=== PATIENT | male | born 1995 | race Two or more races ===

== ENCOUNTER 2024-07-23 11:02 | Emergency (ER) | payer MEDICAID, SELFPAY ==
--- NOTE | 2024-07-23 11:20 | XR_ITS ---
Examination: Abdomen sonogram, Limited Date and time of exam: July 23, 2024 1248 hours INDICATIONS: Epigastric pain and vomiting blood beginning 3 days ago Technique: Real-time meraz scale transabdominal sonographic images of the upper abdomen obtained. Findings: Normal gallbladder Normal common bile duct 0.3 cm Pancreatic head 3.0 cm Liver 14.5 cm fatty infiltration smooth contour no focal liver lesions Normal hepatopedal portal venous flow Patent IVC IMPRESSION: Normal gallbladder Fatty liver
--- NOTE | 2024-07-23 11:20 | EKG_ITS ---
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
--- NOTE | 2024-07-23 11:24 | EDNOTE_ITS ---
Nausea/Vomit./Diarrhea-RME/HPI General Chief complaint: Chest Pain Stated complaint: CX PAIN, VOMITING BLOOD X 2 DAYS Time Seen by Provider: 07/23/24 11:05 Arrival date/time: 07/23/24 11:02 RME / HPI RME / HPI Narrative: 28-year-old male patient with significant history of diabetes mellitus, came in for evaluation regarding vomiting. Patient told me that he has been having vomiting with blood-streaked vomitus for the last 2 days, associated with substernal chest pain. Patient told me that he cannot take anything down due to vomiting. Also complained of epigastric pain. Patient denies any black tarry stool. However her last bowel movement was 4 days ago. Patient denies any abuse of alcohol. Admits to using marijuana on a regular basis. No medication was taken prior travel. Related Data Previous Rx's ?Medication ?Instructions ?Recorded naproxen 500 mg tablet 500 mg PO BID PRN pain #30 tabs 04/07/23 pantoprazole 40 mg tablet,delayed 40 mg PO QDAY #30 tabs 01/18/24 release acetaminophen 300 mg-codeine 30 mg 2 tab PO TID PRN pain #10 tabs 03/28/24 tablet famotidine 40 mg tablet 40 mg PO QDAY #30 tabs 03/28/24 metoclopramide HCl 10 mg tablet 10 mg PO Q6H PRN nausea and 03/28/24 (Reglan) vomiting #20 tabs ondansetron 4 mg disintegrating 4 mg PO Q8H PRN nausea and 04/06/24 tablet vomiting #14 tabs pantoprazole 40 mg tablet,delayed 40 mg PO QDAY #14 tabs 05/22/24 release sucralfate 100 mg/mL oral 5 ml PO BID PRN abdominal 05/22/24 suspension discomfort #473 mL ondansetron HCl 4 mg tablet 4 mg PO Q8H PRN nausea and 07/23/24 vomiting 4 days #30 tabs pantoprazole 40 mg tablet,delayed 40 mg PO QDAY #30 tabs 07/23/24 release (Protonix) Allergies Allergy/AdvReac Type Severity Reaction Status Date / Time No Known Allergies Allergy Unknown Verified 07/23/24 11:04 Review of Systems Review of Systems Narrative Review of Systems: Review of system reviewed and within normal limits except mentioned in HPI ED Exam Narrative Physical exam: VITAL SIGNS: Reviewed. GENERAL APPEARANCE: Alert and interactive, follows commands, no acute distress, HEAD AND FACE: Non-traumatic. ENT: PERRL, pink conjunctivitis, eyelid no trauma, Mucous membrane moist. NECK: Supple, nontender, no nuchal rigidity. CHEST: No tenderness, no crepitus, no paradoxical movement, no retractions. LUNGS: Clear, well ventilated, symmetric, no rales, no wheezing, no ronchi, no stridor, good breath sounds bilaterally. HEART: Regular rate, regular rhythm, no murmur, no gallops. ABDOMEN: Soft, positive bowel sounds, nondistended, no guarding, epigastric tenderness, no rebound, no masses, RECTAL: Deferred. GENITAL: Deferred. NEUROLOGICAL: Gross motor function intact sensory function intact, Appropriate for age. MUSCULOSKELETAL: low back nontender, full range of motion. EXTREMITIES: Nontender, full range of motion. SKIN: Color pink, dry, no rash, no lacerations, no abrasions, no contusions. LYMPHATICS: Deferred. Course Quality Measures none Orders Category Date Time Status CT Screening NOW Care 07/23/24 12:22 Active EKG (ED ONLY) *Do not use* NOW Care 07/23/24 11:20 Completed Occult blood,Gastric (Nursing) NEEDED Care 07/23/24 11:[address] abdomen pelvis w con Stat Exams 07/23/24 12:22 Completed EKG (ED Only) Stat Exams 07/23/24 11:20 Draft US gall bladder Stat Exams 07/23/24 11:20 Completed XR chest 1V Stat Exams 07/23/24 11:26 Completed Acetone [Beta Hydroxybutyrate] Stat Lab 07/23/24 11:28 Completed CBC Stat Lab 07/23/24 11:28 Completed Comprehensive Metabolic Panel Stat Lab 07/23/24 11:28 Completed Drug Screen,Urine Stat Lab 07/23/24 11:24 Ordered Hemoglobin A1C [Glycohemoglobin w (eAG)] Stat Lab 07/23/24 11:28 Completed Lipase Stat Lab 07/23/24 11:28 Completed Partial Thromboplastin Time Stat Lab 07/23/24 11:28 Completed Prothrombin Time with INR Stat Lab 07/23/24 11:28 Completed Troponin I Stat Lab 07/23/24 11:28 Completed VBG [Venous Blood Gas] Stat Lab 07/23/24 11:28 Completed Morphine Inj Med 07/23/24 11:22 Discontinued 4 mg IVP X1 ONE Ondansetron Inj [Zofran Inj] Med 07/23/24 11:24 Discontinued 4 mg IV X1 ONE Pantoprazole Inj [Protonix Inj] Med 07/23/24 11:19 Discontinued 80 mg IV X1 ONE Sodium Chloride 0.9% 1000 ml [Ns] 1,000 ml Med 07/23/24 11:19 Discontinued IV 999 mls/hr Vital Signs Vital signs: Vital Signs Temperature 98.0 F 07/23/24 11:25 Pulse Rate 120 H 07/23/24 11:25 Respiratory Rate 16 07/23/24 11: Blood Pressure 139/98 H 07/23/24 11:25 Pulse Oximetry (%) 98 07/23/24 11:25 Oxygen Delivery Method Room Air 07/23/24 11:25 Nausea/Vomiting/Diarrhea MDM Narrative MDM Narrative:: 28-year-old male patient with significant history of diabetes mellitus, came in for evaluation regarding vomiting. Patient told me that he has been having vomiting with blood streak vomitus for the last 2 days, associated with substernal chest pain. Patient told me that he cannot take anything down due to vomiting. Also complained of epigastric pain. Patient denies any black tarry stool. However her last bowel movement was 4 days ago. Patient denies any abuse of alcohol. Admits to using marijuana on a regular basis. No medication was taken prior travel. Patient's workup today came back with no leukocytosis, blood sugar was noted to be 264 with no sign of diabetic ketoacidosis. Troponin is normal beat is 0.9. CT scan of the abdomen came back unremarkable chest x-ray came back unremarkable ultrasound the gallbladder also came back unremarkable. Except for fatty liver. Patient received IV fluids, Protonix, Zofran with significant improvement of symptoms no more vomiting in the ED. Patient is tolerating p.o. fluids. Patient was advised to stop abusing marijuana which could be the reason for his vomiting. Patient agrees with the plan. Patient data External records reviewed:: None Clinical information provided by:: patient Social determinants that could affect healthcare access:: substance use Patient has the following chronic illnesses:: Diabetes mellitus How is presenting disease/condition affected by chronic disease/condition?: exacerbated by Evaluation data The following diagnostics were reviewed and interpreted by me:: lab results and radiology exam(s) Lab and/or radiology exams considered but not ordered:: None Interpretation Summary: Patient's workup today came back with no leukocytosis, blood sugar was noted to be 264 with no sign of diabetic ketoacidosis. Troponin is normal beat is 0.9. CT scan of the abdomen came back unremarkable chest x-ray came back unremarkable ultrasound the gallbladder also came back unremarkable. Except for fatty liver. Medications / Prescriptions Medications / Prescriptions considered but not ordered:: None Medication administrations:: Medication Administration History Discontinued Medications Sodium Chloride (Ns) 1,000 mls @ 999 mls/hr IV .Q1H1M ONE Stop: 07/23/24 12:19 Last Infusion: 07/23/24 12:41 Dose: Infused Documented By: Admin: 07/23/24 11:40 Dose: 999 mls/hr Documented By: LILY Morphine Sulfate (Morphine Sulf Inj 10 Mg/Ml Vial) 4 mg IVP X1 ONE Stop: 07/23/24 11:23 Last Admin: 07/23/24 11:41 Dose: 4 mg Documented By: LILY Ondansetron HCl (Ondansetron Inj 2 Mg/Ml Inj 2 Ml) 4 mg IV X1 ONE; Protocol Stop: 07/23/24 11:25 Last Admin: 07/23/24 11:41 Dose: 4 mg Documented By: LILY Pantoprazole Sodium (Pantoprazole Inj 40 Mg Vial) 80 mg IV X1 ONE Stop: 07/23/24 11:20 Last Admin: 07/23/24 11:41 Dose: 80 mg Documented By: LILY IV fluids, morphine, Zofran and Protonix Consultations Consultation(s) initiated? (list below): No Diagnosis Nausea Differential Diagnosis: food poisoning, gastroenteritis and dehydration Most likely diagnosis given after review of the tests above:: Cannabinoid hyperemesis syndrome, diabetes mellitus Admission Indicated Admission indicated?: not indicated Explain why admission is indicated or not indicated:: Stable Admission Request Was there a request for admission?: No Disposition Plan Disposition Plan: Discharge Discharge Attestation Discharge Attestation: The patient was given an opportunity to ask questions and understood the discharge instructions. Discharge instructions specifically effects, indications for sooner follow up or return to the emergency department, and the expected course of current diagnosis. Patient condition: Stable Discharge Plan Plan Patient Disposition: HOME (Self Care) Disposition Comment: Stable Prescriptions/Referrals Prescriptions/Med Rec: New ondansetron HCl 4 mg tablet 4 mg PO Q8H PRN (Reason: nausea and vomiting) 4 Days Qty: 30 0RF pantoprazole [Protonix] 40 mg tablet,delayed release (DR/EC) 40 mg PO QDAY Qty: 30 0RF No Action famotidine 40 mg tablet 40 mg PO QDAY Qty: 30 0RF acetaminophen-codeine 300-30 mg tablet 2 tab PO TID MDD 6 PRN (Reason: pain) Qty: 10 0RF metoclopramide HCl [Reglan] 10 mg tablet 10 mg PO Q6H PRN (Reason: nausea and vomiting) Qty: 20 0RF ondansetron 4 mg tablet,disintegrating 4 mg PO Q8H PRN (Reason: nausea and vomiting) Qty: 14 0RF naproxen 500 mg tablet 500 mg PO BID PRN (Reason: pain) Qty: 30 0RF pantoprazole 40 mg tablet,delayed release (DR/EC) 40 mg PO QDAY Qty: 30 0RF pantoprazole 40 mg tablet,delayed release (DR/EC) 40 mg PO QDAY Qty: 14 0RF sucralfate 100 mg/mL suspension 5 ml PO BID PRN (Reason: abdominal discomfort) Qty: 473 0RF Rx Instructions: swish in mouth and swallow; use after food/drink Referrals: Neda Perez PA-C [Primary Care Provider] - In 1 week Problem List Clinical Impression: Cannabinoid hyperemesis syndrome, Diabetes mellitus Patient/Caregiver Discharge Instructions Discharge Activity: activity as tolerated Education Materials: Diabetes: Meal Planning Additional Instructions: Thank you for the opportunity for serving you today. You are stable for discharged . You are advised to: Follow-up with your PCP in 1 to 2 days Return to ED for worsening of symptoms Increase oral fluids Take medication as prescribed Please stop abusing marijuana we will worsen your vomiting. And it is the cause of your vomiting also. Print Language: Malaysian Stand Alone Forms: Amy Award Info., Patient Portal Info Letter INDERJIT/SONI Supervising Physician JULI Supervising Physician: MD Lexus
[2024-07-23 11:25] VITALS: BP 139/98; PULSE 120; RESP 16; TEMP 36.7; O2SAT 98; BMI 24.3
--- NOTE | 2024-07-23 11:26 | XR_ITS ---
Examination: PA chest single view TECHNIQUE: Upright PA chest single view Exam date and time: July 23, 1999 2547 hours Comparison June 22, 2022 INDICATIONS: Diagnosis diabetes, onset vomiting beginning 2 days ago with substernal chest pain FINDINGS: Normal heart size. Lungs are clear. No aspiration pneumonia. The osseous structures are intact IMPRESSION: Negative for aspiration pneumonia
[2024-07-23] MEDS: SODIUM CHLORIDE 0.9% 1000 ML 1,000 ML 999 ML IV (11:40)
[2024-07-23] MEDS: PANTOPRAZOLE INJ 40 MG VIAL 80 MG IV (11:41)
[2024-07-23] MEDS: MORPHINE SULF INJ 10 MG/ML VIAL 4 MG IVP (11:41)
[2024-07-23] MEDS: ONDANSETRON INJ 2 MG/ML INJ 2 ML 4 MG IV (11:41)
[2024-07-23 11:47] LABS: Base Excess, Venous 5 (-3-3); O2 Saturation, Venous 83 % (96-97); PCO2, Venous 40 mmHg (36-56); PO2, Venous 45 mmHg (15-58); pH, Venous 7.47 (7.33-7.66)
[2024-07-23 11:53] LABS: Basophils # (Auto) 0.1 Thou/mm3 (0.0-0.2); Basophils % (Auto) 1 % (0-2.5); Eosinophils % (Auto) 1 % (0-10); Hematocrit 47.5 % (41.0-53.0); Hemoglobin 17.4 g/dL (13.5-16.0); Immature Granulocytes % (Auto) 0 % (0-0); Immature Granulocytes Auto 0.01 Thou/mm3 (0.00-0.00); Lymphocytes # (Auto) 1.6 Thou/mm3 (1.0-4.8); Lymphocytes % (Auto) 19 % (10-50); Mean Corpuscular HGB Conc 36.6 g/dl (31.0-37.0); Mean Corpuscular Hemoglobin 31.5 pg (25.0-35.0); Mean Corpuscular Volume 86 fL (80-100); Monocytes # (Auto) 0.3 Thou/mm3 (0.0-0.8); Monocytes % (Auto) 4 % (0-12); Neutrophils # (Auto) 6.7 Thou/mm3 (1.8-7.7); Neutrophils % (Auto) 77 % (37-80); Nucleated Red Blood Cell % 0 /100 WBC (0); Platelet Count 382 Thou/mm3 (140-440); RDW Standard Deviation 36.7 fL (35.1-43.9); Red Blood Count 5.53 Miln/mm3 (4.50-5.90); White Blood Count 8.7 Thou/mm3 (3.8-10.6)
[2024-07-23 11:55] LABS: Beta Hydroxybutyrate 0.9 mmol/L (<0.6)
[2024-07-23 12:07] LABS: Partial Thromboplastin Time 28.8 Seconds (22.0-36.0); Prothrombin Time 11.4 Seconds (9.0-12.2)
[2024-07-23 12:11] LABS: Alanine Aminotransferase 12 U/L (10-49); Albumin/Globulin Ratio 1.7 (1.2-2.2); Alkaline Phosphatase 106 U/L (46-116); Anion Gap 11 (7-16); Aspartate Amino Transferase 11 U/L (0-34); BUN/Creatinine Ratio 21 Ratio (12-20); Bilirubin,Total 0.8 mg/dL (0.3-1.2); Blood Urea Nitrogen 17 mg/dL (9-23); Calcium 9.9 mg/dL (8.3-10.6); Calcium (Corrected) 9.9 mg/dL (8.5-10.1); Carbon Dioxide 27.4 mMol/L (20.0-31.0); Chloride 95 mMol/L (98-107); Creatinine (Component) 0.8 mg/dL (0.6-1.3); Estimated Creatinine Clearance 134.2 mL/min (>60); Globulin 2.9 gm/dL (2.3-3.5); Glucose 264 mg/dL (74-106); Lipase 33 U/L (12-53); Osmolality,Calculated 276 (275-295); Potassium 3.8 mMol/L (3.4-5.1); Sodium 133 mMol/L (136-145); Total Protein 7.9 gm/dL (5.7-8.2); Troponin I < 0.002 ng/mL (0.0-0.045); eGFR > 60 See Note
--- NOTE | 2024-07-23 12:22 | XR_ITS ---
Examination: CT abdomen with intravenous contrast CT pelvis with intravenous contrast 2-D coronal reconstructions 2-D sagittal reconstructions Date and time of exam:July 23, 2024 1353 hours Comparison 03/28/2024 INDICATIONS: Upper abdominal pain nausea vomiting beginning 3 days ago. CTDI: vol (mGy) 8.58 DLP: (mGycm) 404 Technique: Multiple axial sections of the abdomen and pelvis have been obtained. 64 slice high-resolution scanner used. 3 mm axial sections have been obtained, post intravenous injection 60 cc [id number] 2-D sagittal, coronal reconstructions obtained. Low dose protocols were performed. One or more of the following dose reduction techniques were used; automated exposure control, adjustment of the mA and/or KV according to patient size, use of iterative reconstruction technique. Findings: No focal liver or splenic lesions No gallstones Gastric mucosa in the fundal region is thickened, axial image 58 No pancreatic or adrenal mass No hydronephrosis or ureteral calculi Aorta normal size No bowel obstruction Normal appendix No diverticulitis Urinary bladder wall is mildly thickened 2.5 mm No prostatomegaly The osseous structures are intact IMPRESSION: Suspicious for gastritis, clinical correlation advised No hydronephrosis or ureteral calculi Normal appendix Minimal thickening of the urinary bladder wall, consider cystitis
[2024-07-23 13:08] LABS: Glucose Estimated Average 226 mg/dL (80-131); Hemoglobin A1C 9.5 % Hgb (4.8-6.0)
[2024-07-23 15:04] VITALS: BP 122/82; PULSE 88
== END 2024-07-23 15:05 | disposition home or self-care (01) ==
PROVIDERS: Nurse Practitioner Family; Emergency Provider Emergency Medicine; PCP Specialist
DX: R11.10 Vomiting, unspecified (principal); E11.9 Type 2 diabetes mellitus without complications; R11.2 Nausea with vomiting, unspecified; F12.90 Cannabis use, unspecified, uncomplicated; R07.9 Chest pain, unspecified; R10.13 Epigastric pain
CPT/HCPCS: 36415; 71045; 74177; 76705; 80053; 80307; 82010; 82803; 83036; 83690; 84484; 85025; 85610; 85730; 93005; 96361; 96374; 96375; 99285; A4649; J2270; J2405; J2470; J7030; Q9967

== ENCOUNTER 2024-08-31 23:53 | Emergency (ER) | payer MEDICAID, SELFPAY ==
[2024-08-31 23:54] VITALS: BMI 291.9
[2024-09-01 00:13] VITALS: BP 133/89; PULSE 94; RESP 18; TEMP 36.4; O2SAT 99
--- NOTE | 2024-09-01 00:21 | XR_ITS ---
Examination: Wrist, right 3 views Technique: Wrist AP, oblique, lateral 3 views Date and time of exam: September 01, 2024 0024 hrs. Indications: Injury to the wrist 2 months ago with persistent wrist pain. Findings: No acute fracture No dislocation No foreign body Impression: No acute fracture
--- NOTE | 2024-09-01 00:21 | XR_ITS ---
Examination: Hand, right 3 views Technique: Hand AP, oblique, lateral 3 views Date and time of exam: June 01, 2025 0024 hrs. Indications: Injury to the right hand beginning 3 months ago, hand pain Findings: No acute fracture No dislocation No foreign body Impression: No acute fracture
--- NOTE | 2024-09-01 00:24 | EDNOTE_ITS ---
ED Extremity Problem RME/HPI General Chief complaint: Extremity Problem,Nontraumatic Stated complaint: RIGHT HAND PAIN Time Seen by Provider: 08/31/24 23:59 Source: patient Arrival date/time: 08/31/24 23:53 29-year-old male presents emergency department complaining of right hand pain that been ongoing for 6 months. 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 Patient reports occasionally feels 2 small node on the palm of his hand below fourth and fifth digits. Patient denies any recent injury. Patient reports does have a lot of repetitive motion with the right hand as in the field he uses scissors. Patient denies any other associated symptoms. Mode of arrival: ambulatory Limitations: no limitations Related Data Previous Rx's ?Medication ?Instructions ?Recorded naproxen 500 mg tablet 500 mg PO BID PRN pain #30 t abs 04/07/23 pantoprazole 40 mg tablet,delayed 40 mg PO QDAY #30 ta bs 01/18/24 release acetaminophen 300 mg-codeine 30 mg 2 tab PO TID PRN pa in #10 tabs 03/28/24 tablet famotidine 40 mg tablet 40 mg PO QDAY #30 tabs 03/28 metoclopramide HCl 10 mg tablet 10 mg PO Q6H PRN nause a and 03/28/24 (Reglan) vomiting #20 tabs ondansetron 4 mg disintegrating 4 mg PO Q8H PRN nausea and 04/06/24 tablet vomiting #14 tabs pantoprazole 40 mg tablet,delayed 40 mg PO QDAY #14 ta bs 05/22/24 release sucralfate 100 mg/mL oral 5 ml PO BID PRN abdominal suspension discomfort #473 mL pantoprazole 40 mg tablet,delayed 40 mg PO QDAY #30 ta bs 07/23/24 release (Protonix) cyclobenzaprine 10 mg tablet 10 mg PO TID PRN muscle s pasm #10 09/01/24 tabs ibuprofen 800 mg tablet 800 mg PO TID PRN fever or p ain 09/01/24 #30 tabs Allergies Allergy/AdvReac Type Severity Reaction Status Date / Time No Known Allergies Allergy Unknown Verified 02/17/25 23:55 Review of Systems Review of Systems Systems Reviewed: All systems reviewed, normal except as documented Constitutional Constitutional: Reports system reviewed and no additional complaints, except as documented, Denies body ache(s), Denies chills and Denies fever(s) Eyes Eyes: Reports system reviewed and no additional complaints, except as documented and Denies change in vision ENT Ears, Nose, Mouth, and Throat: Reports system reviewed and no additional complaints, except as documented, Denies disequilibrium, Denies dizziness, Denies sore throat and Denies vertigo Cardiovascular Cardiovascular: Reports system reviewed and no additional complaints, except as documented, Denies chest pain and Denies dyspnea Respiratory Respiratory: Reports system reviewed and no additional complaints, except as documented, Denies chest congestion, Denies cough and Denies dyspnea Gastrointestinal Gastrointestinal: Reports system reviewed and no additional complaints, except as documented, Denies abdominal pain, Denies nausea and Denies vomiting Musculoskeletal Musculoskeletal: Reports system reviewed and no additional complaints, except as documented, Denies abnormal gait and Reports arthralgias Integumentary/Breasts Skin/Breast: Reports system reviewed and no additional complaints, except as documented, Denies erythema, Denies rash and Denies wounds Neurologic Neurologic: Reports system reviewed and no additional complaints, except as documented, Denies abnormal gait, Denies disequilibrium, Denies dizziness and Denies vertigo Past Medical History Past Medical History NEUROLOGIC: Negative Neurological Disorders, Cerebrovascular Accident, Alzheimer's Disease or Seizures CARDIAC: Positive Hypercholesterolemia and Hypertension; Negative Cardiac Disorders, Cardiac Arrhythmia, Congestive Heart Failure, Edema, Cellulitis or Varicose Veins RESPIRATORY: Negative Chronic Obstructive Pulmonary Disease (COPD), Asthma, Emphysema, Tuberculosis or Sleep Apnea GASTROINTESTINAL: Positive Gastrointestinal Disorders and Gastroesophageal Reflux Disease; Negative Hepatitis or Pancreatic Cancer GENITOURINARY: Negative Genitourinary Disorders or Renal Disease REPRODUCTIVE: Positive Genital Herpes MUSCULOSKELETAL: Positive Musculoskeletal Disorders and Arthritis; Negative Bone Cancer ENDOCRINE: Positive Endocrine Disorders, Diabetes Mellitus Type 1 and Diabetes Mellitus Type 2 HEMATOLOGIC: Negative Blood Disorders or Sickle Cell Disease OTHER HISTORY: Negative Hospitalization, Autoimmune Disease, Down Syndrome, Developmental Delay, Shingles, Falls, Blood Transfusions, Blood Transfusion Reaction, Anesthesia Reactions, Chemotherapy, Radiation Therapy, MRSA, Chicken Pox, Measles, Mumps or Cancer Family History FAMILY HISTORY: Positive Family Cardiac Disorders and Family Surgery; Negative Family Psychiatric Problems, Family Respiratory Disorders, Family Gastrointestinal Problems, Family Cancer or Family Anesthesia Reaction Surgical History SURGICAL: Negative Pacemaker Social History SMOKING STATUS: Never smoker SUBSTANCE USE: marijuana ED Exam General Limitations: Present no limitations General appearance: Present alert and in no apparent distress Head Head exam: Present atraumatic Eye Eye exam: Present normal appearance, PERRL and EOMI ENT ENT exam: Present normal exam, normal oropharynx and mucous membranes moist Neck Neck exam: Present normal inspection, full ROM and trachea midline Chest Chest inspection: Present normal inspection and symmetric chest wall rise Respiratory Respiratory exam: Present normal lung sounds bilaterally Cardiovascular Cardiovascular exam: Present regular rate, normal rhythm and normal heart sounds Abdominal Exam Abdominal exam: Present soft and normal bowel sounds Extremities Exam Extremities exam: Present normal inspection and full ROM Expanded Upper Extremity Exam Hand L/R front image: 2 1. other (2 small bumps can be felt on palpation) Back Exam Back exam: Present normal inspection and full ROM Neurological Exam Neurological exam: Present alert, oriented X3 and CN II-XII intact Psychiatric Psychiatric exam: Present normal affect and normal mood Skin Skin exam: Present warm, dry, intact and normal color Course Quality Measures none Orders Category Date Time Status XR hand comp RT min 3V Stat Exams 09/01/24 00:21 Taken XR wrist comp RT min 3V Stat Exams 09/01/24 00:21 Taken Ketorolac Inj [Toradol Inj] Med 09/01/24 00:21 Discontinued 30 mg IM X1 ONE Vital Signs Vital signs: Vital Signs Temperature 97.5 F 09/01/24 00:13 Pulse Rate 94 09/01/24 00:13 Respiratory Rate 18 09/01/24 00:13 Blood Pressure 133/89 H 09/01/24 00:13 Pulse Oximetry (%) 99 09/01/24 00:13 Oxygen Delivery Method Room Air 09/01/24 00:13 99% room air within normal limits Extremity Problem MDM Narrative MDM Narrative:: 29-year-old male presents emergency department complaining of right hand pain that been ongoing for 6 months. 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 Patient reports occasionally feels 2 small node on the palm of his hand below fourth and fifth digits. Patient denies any recent injury. Patient reports does have a lot of repetitive motion with the right hand as in the field he uses scissors. Patient denies any other associated symptoms. Right hand and wrist neurovascularly intact with full active range of motion. Patient likely had carpal tunnel versus Dupuytren contracture versus ganglion cyst. Patient instructed to follow-up with primary care provider and request referral to physical therapy or hand specialist if symptoms persist. Patient data External records reviewed:: [facility] previous records Clinical information provided by:: patient Social determinants that could affect healthcare access:: none Patient has the following chronic illnesses:: See chart How is presenting disease/condition affected by chronic disease/condition?: u neffected by Evaluation data The following diagnostics were reviewed and interpreted by me:: radiology exam(s) Lab and/or radiology exams considered but not ordered:: Ordered Interpretation Summary: Interpreted by me Medications / Prescriptions Medications or Prescriptions considered but not ordered:: Ordered Medication administrations:: Medication Administration History Discontinued Medications Ketorolac Tromethamine (Ketorolac Inj 60 Mg/2 Ml Vial) 30 mg IM X1 ONE Stop: 09/01/24 00:22 Last Admin: 09/01/24 00:28 Dose: 30 mg Documented By: EO Given Consultations Consultation(s) initiated? (list below): No Diagnosis Extremity Problem Differential Diagnosis: gout and deep venous thrombosis of upper extremity Most likely diagnosis given after review of the tests above:: Pain of hand Admission Indicated Admission indicated?: not indicated Admission Request Was there a request for admission?: No Disposition Plan Disposition Plan: Discharge Discharge Attestation Discharge Attestation: The patient and all family members were given an opportunity to ask questions and understood the discharge instructions. Discharge instructions specifically effects, indications for sooner follow up or return to the emergency department, and the expected course of current diagnosis. Patient condition: Stable Discharge Plan Plan Patient Disposition: HOME (Self Care) Disposition Comment: Stable Prescriptions/Referrals Prescriptions/Med Rec: New cyclobenzaprine 10 mg tablet 10 mg PO TID PRN (Reason: muscle spasm) Qty: 10 0RF ibuprofen 800 mg tablet 800 mg PO TID PRN (Reason: fever or pain) Qty: 30 0RF No Action famotidine 40 mg tablet 40 mg PO QDAY Qty: 30 0RF acetaminophen-codeine 300-30 mg tablet 2 tab PO TID MDD 6 PRN (Reason: pain) Qty: 10 0RF metoclopramide HCl [Reglan] 10 mg tablet 10 mg PO Q6H PRN (Reason: nausea and vomiting) Qty: 20 0RF ondansetron 4 mg tablet,disintegrating 4 mg PO Q8H PRN (Reason: nausea and vomiting) Qty: 14 0RF naproxen 500 mg tablet 500 mg PO BID PRN (Reason: pain) Qty: 30 0RF pantoprazole 40 mg tablet,delayed release (DR/EC) 40 mg PO QDAY Qty: 30 0RF pantoprazole 40 mg tablet,delayed release (DR/EC) 40 mg PO QDAY Qty: 14 0RF sucralfate 100 mg/mL suspension 5 ml PO BID PRN (Reason: abdominal discomfort) Qty: 473 0RF Rx Instructions: swish in mouth and swallow; use after food/drink pantoprazole [Protonix] 40 mg tablet,delayed release (DR/EC) 40 mg PO QDAY Qty: 30 0RF Problem List Clinical Impression: Pain in hand Patient/Caregiver Discharge Instructions Discharge Activity: activity as tolerated Education Materials: Self-Care for Strains and Sprains, ED Myalgias, ED RICE Additional Instructions: Rest, ice, compress, and elevate affected extremity. Take pain medication as prescribed. Follow-up with primary care provider in 2 to 3 days and request referral to physical therapy or hand specialist if symptoms persist. Return to emergency department for any worsening symptoms or as needed. Print Language: Khmer Stand Alone Forms: Amy Award Info., Patient Portal Info Letter PA/GEOTECHNICAL DEPARTMENT MANAGER Supervising Physician PA/GEOTECHNICAL DEPARTMENT MANAGER Supervising Physician: Dr. Garrett
[2024-09-01] MEDS: KETOROLAC INJ 60 MG/2 ML VIAL 30 MG IM (00:28)
== END 2024-09-01 00:46 | disposition home or self-care (01) ==
LOC: SERX 09-01 00:49
PROVIDERS: Emergency Provider Emergency Medicine; PCP Specialist
DX: M79.641 Pain in right hand (principal)
CPT/HCPCS: 73110; 73130; 96372; 99283; J1885

== ENCOUNTER 2024-09-10 22:30 | Emergency (ER) | payer MEDICAID, SELFPAY ==
[2024-09-10 22:43] VITALS: BP 143/94; PULSE 119; RESP 18; TEMP 36.6; O2SAT 100
[2024-09-10 22:45] VITALS: BMI 22.7
--- NOTE | 2024-09-10 22:55 | PD.EDRME ---
Rapid Medical Screening Exam [facility] Arrival date/time: 09/10/24 22:30 29M with history of DM and alcohol/drug use presents to ED with epigastric pain and N/V. Chief Complaint: Abdominal Pain Vital signs: Vital Signs Temperature 97.8 F 09/10/24 22:43 Pulse Rate 119 H 09/10/24 22:43 Respiratory Rate 18 09/10/24 22:43 Blood Pressure 143/94 H 09/10/24 22:43 Pulse Oximetry (%) 100 09/10/24 22:43 Oxygen Delivery Method Room Air 09/10/24 22:43
--- NOTE | 2024-09-10 23:55 | PC.NURSE ---
N/A FROM Status Overload LAB
--- NOTE | 2024-09-11 00:10 | PC.NURSE ---
[facility]
--- NOTE | 2024-09-11 00:24 | PC.NURSE ---
[facility]
== END 2024-09-11 00:24 | disposition left against medical advice (07) ==
LOC: SERX 09-11 01:05
PROVIDERS: Emergency Provider Emergency Medicine
DX: R10.13 Epigastric pain (principal); E11.9 Type 2 diabetes mellitus without complications; Z53.29 Procedure and treatment not carried out because of patient's decision for other reasons
CPT/HCPCS: 80053; 80320; 81001; 83690; 85025; 99281; G0480

== ENCOUNTER 2024-09-12 00:50 | Emergency (ER) | payer MEDICAID, SELFPAY ==
[2024-09-12 00:51] VITALS: BMI 28.3
[2024-09-12 01:38] VITALS: BP 138/91; PULSE 90; RESP 18; TEMP 36.6; O2SAT 99
[2024-09-12 02:46] LABS: Basophils % (Auto) 1 % (0-2.5); Eosinophils # (Auto) 0.1 Thou/mm3 (0.0-0.5); Eosinophils % (Auto) 1 % (0-10); Hematocrit 45.2 % (41.0-53.0); Hemoglobin 16.3 g/dL (13.5-16.0); Immature Granulocytes % (Auto) 0 % (0-0); Immature Granulocytes Auto 0.01 Thou/mm3 (0.00-0.00); Lymphocytes # (Auto) 1.5 Thou/mm3 (1.0-4.8); Lymphocytes % (Auto) 28 % (10-50); Mean Corpuscular HGB Conc 36.1 g/dl (31.0-37.0); Mean Corpuscular Hemoglobin 31.1 pg (25.0-35.0); Mean Corpuscular Volume 86 fL (80-100); Monocytes # (Auto) 0.6 Thou/mm3 (0.0-0.8); Monocytes % (Auto) 10 % (0-12); Neutrophils # (Auto) 3.3 Thou/mm3 (1.8-7.7); Neutrophils % (Auto) 60 % (37-80); Nucleated Red Blood Cell % 0 /100 WBC (0); Platelet Count 352 Thou/mm3 (140-440); RDW Standard Deviation 36.2 fL (35.1-43.9); Red Blood Count 5.24 Miln/mm3 (4.50-5.90); White Blood Count 5.5 Thou/mm3 (3.8-10.6)
[2024-09-12] MEDS: METOCLOPRAMIDE 5 MG TABLET 10 MG PO (02:59)
[2024-09-12] MEDS: FAMOTIDINE 20 MG TABLET 40 MG PO (02:59)
[2024-09-12] MEDS: MG HYD/AL HYD/SIME (Maalox Reg) SUSP 30 ML UDC PO (03:00)
[2024-09-12 03:08] LABS: Alanine Aminotransferase 11 U/L (10-49); Albumin, Serum 4.6 gm/dL (3.5-5.0); Albumin/Globulin Ratio 1.6 (1.2-2.2); Alkaline Phosphatase 94 U/L (46-116); Anion Gap 7 (7-16); Aspartate Amino Transferase 11 U/L (0-34); BUN/Creatinine Ratio 21 Ratio (12-20); Bilirubin,Total 0.6 mg/dL (0.3-1.2); Blood Urea Nitrogen 17 mg/dL (9-23); Calcium 9.7 mg/dL (8.3-10.6); Calcium (Corrected) 9.7 mg/dL (8.5-10.1); Chloride 98 mMol/L (98-107); Creatinine (Component) 0.8 mg/dL (0.6-1.3); Estimated Creatinine Clearance 127.3 mL/min (>60); Globulin 2.8 gm/dL (2.3-3.5); Glucose 245 mg/dL (74-106); Lipase 50 U/L (12-53); Osmolality,Calculated 283 (275-295); Potassium 4.7 mMol/L (3.4-5.1); Sodium 137 mMol/L (136-145); Total Protein 7.4 gm/dL (5.7-8.2); eGFR > 60 See Note
--- NOTE | 2024-09-12 04:27 | PD.EDABDPN ---
ED Abdominal Pain RME/HPI General Chief Complaint: Abdominal Pain Stated complaint: VOMITING X3 DAYS, UPPER ABDOMINAL PAIN Time seen by provider: 09/12/24 02:30 Arrival date/time: 09/12/24 00:50 29M with history of DM and alcohol/drug use presents to ED with epigastric pain and N/V. Limitations: no limitations Related Data Previous Rx's ?Medication ?Instructions ?Recorded naproxen 500 mg tablet 500 mg PO BID PRN pain #30 tabs 04/07/23 pantoprazole 40 mg tablet,delayed 40 mg PO QDAY #30 tabs 01/18/24 release acetaminophen 300 mg-codeine 30 mg 2 tab PO TID PRN pain #10 tabs 03/28/24 tablet famotidine 40 mg tablet 40 mg PO QDAY #30 tabs 03/28/24 metoclopramide HCl 10 mg tablet 10 mg PO Q6H PRN nausea and 03/28/24 (Reglan) vomiting #20 tabs ondansetron 4 mg disintegrating 4 mg PO Q8H PRN nausea and 04/06/24 tablet vomiting #14 tabs pantoprazole 40 mg tablet,delayed 40 mg PO QDAY #14 tabs 05/22/24 release sucralfate 100 mg/mL oral 5 ml PO BID PRN abdominal 05/22/24 suspension discomfort #473 mL pantoprazole 40 mg tablet,delayed 40 mg PO QDAY #30 tabs 07/23/24 release (Protonix) cyclobenzaprine 10 mg tablet 10 mg PO TID PRN muscle spasm #10 09/01/24 tabs ibuprofen 800 mg tablet 800 mg PO TID PRN fever or pain 09/01/24 #30 tabs Allergies Allergy/AdvReac Type Severity Reaction Status Date / Time No Known Allergies Allergy Unknown Verified 09/10/24 22:34 Review of Systems Review of Systems Systems Reviewed: All systems reviewed, normal except as documented Constitutional Constitutional: Reports system reviewed and no additional complaints, except as documented, Denies fever(s) and Denies headache(s) ENT Ears, Nose, Mouth, and Throat: Denies disequilibrium and Denies headache(s) Cardiovascular Cardiovascular: Reports system reviewed and no additional complaints, except as documented, Denies chest pain and Denies dyspnea Respiratory Respiratory: Reports system reviewed and no additional complaints, except as documented, Denies cough and Denies dyspnea Gastrointestinal Gastrointestinal: Reports system reviewed and no additional complaints, except as documented, Reports as per HPI, Reports abdominal pain, Reports nausea and Reports vomiting Neurologic Neurologic: Reports system reviewed and no additional complaints, except as documented, Denies confusion, Denies disequilibrium and Denies headache(s) Psychiatric Psychiatric: Denies confusion Past Medical History Past Medical History NEUROLOGIC: Negative Neurological Disorders, Cerebrovascular Accident, Alzheimer's Disease or Seizures CARDIAC: Positive Hypercholesterolemia and Hypertension; Negative Cardiac Disorders, Cardiac Arrhythmia, Congestive Heart Failure, Edema, Cellulitis or Varicose Veins RESPIRATORY: Negative Chronic Obstructive Pulmonary Disease (COPD), Asthma, Emphysema, Tuberculosis or Sleep Apnea GASTROINTESTINAL: Positive Gastrointestinal Disorders and Gastroesophageal Reflux Disease; Negative Hepatitis or Pancreatic Cancer GENITOURINARY: Negative Genitourinary Disorders or Renal Disease REPRODUCTIVE: Positive Genital Herpes MUSCULOSKELETAL: Positive Musculoskeletal Disorders and Arthritis; Negative Bone Cancer ENDOCRINE: Positive Endocrine Disorders, Diabetes Mellitus Type 1 and Diabetes Mellitus Type 2 HEMATOLOGIC: Negative Blood Disorders or Sickle Cell Disease OTHER HISTORY: Negative Hospitalization, Autoimmune Disease, Down Syndrome, Developmental Delay, Shingles, Falls, Blood Transfusions, Blood Transfusion Reaction, Anesthesia Reactions, Chemotherapy, Radiation Therapy, MRSA, Chicken Pox, Measles, Mumps or Cancer Family History FAMILY HISTORY: Positive Family Cardiac Disorders and Family Surgery; Negative Family Psychiatric Problems, Family Respiratory Disorders, Family Gastrointestinal Problems, Family Cancer or Family Anesthesia Reaction Surgical History SURGICAL: Negative Pacemaker Social History SMOKING STATUS: Never smoker SUBSTANCE USE: marijuana ED Exam General Limitations: Present no limitations General appearance: Present alert and in no apparent distress Head Head exam: Present atraumatic Eye Eye exam: Present normal appearance, PERRL and EOMI ENT ENT exam: Present normal exam, normal oropharynx and mucous membranes moist Neck Neck exam: Present normal inspection, full ROM and trachea midline Chest Chest inspection: Present normal inspection and symmetric chest wall rise Respiratory Respiratory exam: Present normal lung sounds bilaterally Cardiovascular Cardiovascular exam: Present regular rate, normal rhythm and normal heart sounds Abdominal Exam Abdominal exam: Present soft and normal bowel sounds Abdominal tenderness: Present epigastrium and mild Extremities Exam Extremities exam: Present normal inspection and full ROM Back Exam Back exam: Present normal inspection and full ROM Neurological Exam Neurological exam: Present alert, oriented X3 and CN II-XII intact Psychiatric Psychiatric exam: Present normal affect and normal mood Skin Skin exam: Present warm, dry, intact and normal color Course Quality Measures none Orders Category Date Time Status CBC Stat Lab 09/12/24 02:35 Completed CMP [Comprehensive Metabolic Panel] Stat Lab 09/12/24 02:35 Completed Lipase Stat Lab 09/12/24 02:35 Completed Famotidine [Pepcid] Med 09/12/24 02:29 Discontinued 40 mg PO X1 ONE Metoclopramide [Reglan] Med 09/12/24 02:42 Discontinued 10 mg PO X1 ONE Ondansetron Odt [Zofran Odt] Med 09/12/24 02:29 Discontinued 4 mg PO X1 ONE mg Hyd/Al Hyd/Clark Susp [Maalox Susp] Med 09/12/24 02:29 Discontinued 30 ml PO X1 ONE Vital Signs Vital signs: Vital Signs Temperature 98 F 09/12/24 01:38 Pulse Rate 90 09/12/24 01:38 Respiratory Rate 18 09/12/24 01:38 Blood Pressure 138/91 H 09/12/24 01:38 Pulse Oximetry (%) 99 09/12/24 01:38 Oxygen Delivery Method Room Air 09/12/24 01:38 O2 at 99% on RA and WNLs Abdominal Pain MDM MDM Narrative MDM Narrative:: 29M with history of DM and alcohol/drug use presents to ED with epigastric pain and N/V. Physical exam reveals mild epigastric tenderness. Patient is afebrile, calm, and alert. No leukocytosis. CMP unremarkable. Lipase normal. Meds relieved symptoms. Likely gastritis. Patient data External records reviewed:: [facility] previous records Clinical information provided by:: patient Social determinants that could affect healthcare access:: alcohol use Patient has the following chronic illnesses:: DM and alcohol/drug How is presenting disease/condition affected by chronic disease/condition?: exacerbated by Evaluation data The following diagnostics were reviewed and interpreted by me:: lab results Lab and/or radiology exams considered but not ordered:: ordered Interpretation Summary: above Medications / Prescriptions Medications or Prescriptions considered but not ordered:: ordered Medication administrations:: Medication Administration History Discontinued Medications Al Hydrox/Mg Hydrox/Simethicone (Mg Hyd/Al Hyd/Clark (Maalox Reg) Susp 30 Ml Udc) 30 ml PO X1 ONE Stop: 09/12/24 02:30 Last Admin: 09/12/24 03:00 Dose: 30 ml Documented By: KLAUDIA Famotidine (Famotidine 20 Mg Tablet) 40 mg PO X1 ONE Stop: 09/12/24 02:30 Last Admin: 09/12/24 02:59 Dose: 40 mg Documented By: KLAUDIA Metoclopramide HCl (Metoclopramide 5 Mg Tablet) 10 mg PO X1 ONE Stop: 09/12/24 02:43 Last Admin: 09/12/24 02:59 Dose: 10 mg Documented By: KLAUDIA Ondansetron HCl (Ondansetron Odt 4 Mg Tabrap) 4 mg PO X1 ONE; Protocol Stop: 09/12/24 02:30 Last Admin: 09/12/24 03:01 Dose: Not Given Documented By: KLAUDIA Non-Admin Reason: Discontinued above Consultations Consultation(s) initiated? (list below): No Diagnosis Differential diagnosis abdominal pain: abdominal pain, acute appendicitis, calculus of kidney, constipation, diverticulitis, gastroenteritis, pancreatitis, small bowel obstruction and other (gastritis) Most likely diagnosis given after review of the tests above:: gastritis Admission Indicated Admission indicated?: not indicated Admission Request Was there a request for admission?: No Disposition Plan Disposition Plan: Discharge Discharge Attestation Discharge Attestation: The patient and all family members were given an opportunity to ask questions and understood the discharge instructions. Discharge instructions specifically effects, indications for sooner follow up or return to the emergency department, and the expected course of current diagnosis. Patient condition: Stable Discharge Plan Plan Patient Disposition: HOME (Self Care) Disposition Comment: Stable Prescriptions/Referrals Prescriptions/Med Rec: No Action famotidine 40 mg tablet 40 mg PO QDAY Qty: 30 0RF acetaminophen-codeine 300-30 mg tablet 2 tab PO TID MDD 6 PRN (Reason: pain) Qty: 10 0RF metoclopramide HCl [Reglan] 10 mg tablet 10 mg PO Q6H PRN (Reason: nausea and vomiting) Qty: 20 0RF ondansetron 4 mg tablet,disintegrating 4 mg PO Q8H PRN (Reason: nausea and vomiting) Qty: 14 0RF cyclobenzaprine 10 mg tablet 10 mg PO TID PRN (Reason: muscle spasm) Qty: 10 0RF ibuprofen 800 mg tablet 800 mg PO TID PRN (Reason: fever or pain) Qty: 30 0RF naproxen 500 mg tablet 500 mg PO BID PRN (Reason: pain) Qty: 30 0RF pantoprazole 40 mg tablet,delayed release (DR/EC) 40 mg PO QDAY Qty: 30 0RF pantoprazole 40 mg tablet,delayed release (DR/EC) 40 mg PO QDAY Qty: 14 0RF sucralfate 100 mg/mL suspension 5 ml PO BID PRN (Reason: abdominal discomfort) Qty: 473 0RF Rx Instructions: swish in mouth and swallow; use after food/drink pantoprazole [Protonix] 40 mg tablet,delayed release (DR/EC) 40 mg PO QDAY Qty: 30 0RF Referrals: Neda Perez PA-C [Primary Care Provider] - In 1 week Problem List Clinical Impression: Gastritis Patient/Caregiver Discharge Instructions Education Materials: ED Gastritis (Adult) Additional Instructions: Please follow-up with PCP within 24-48 hours and return immediately if symptoms worsen. Print Language: Vincentian Stand Alone Forms: Patient Portal Info Letter INDERJIT/SONI Supervising Physician JULI Supervising Physician: Dr. Lepe
== END 2024-09-12 04:05 | disposition home or self-care (01) ==
PROVIDERS: Physician Assistant; Emergency Provider Emergency Medicine; PCP Specialist
DX: K29.70 Gastritis, unspecified, without bleeding (principal)
CPT/HCPCS: 36415; 80053; 83690; 85025; 99283; A9270

== ENCOUNTER 2025-05-18 01:31 | Emergency (ER) | payer MEDICAID, SELFPAY ==
[2025-05-18] VITALS (22 sets, daily range): BP systolic 103–163; BP diastolic 62–101; PULSE 96–114; RESP 12–21; TEMP 36.3–37.2; O2SAT 97–100; BMI 29.0
--- NOTE | 2025-05-18 01:44 | PD.EDOVER ---
ED Overdose QUIRINOE/KATHRIN General Chief Complaint: Overdose Stated Complaint: TOOK UNKNOWN AMOUNT OF TYLENOL Time Seen by Provider: 05/18/25 02:04 Arrival date/time: 05/18/25 01:31 GRACIELA / KATHRIN LOPEZ complaint: intentional overdose Timing confirmed by: spouse GRACIELA / KATHRIN Narrative: See [facility] for Dr. Alberts's HPI Documentation. Related Data Previous Rx's ?Medication ?Instructions ?Recorded naproxen 500 mg tablet 500 mg PO BID PRN pain #30 tabs 04/07/23 pantoprazole 40 mg tablet,delayed 40 mg PO QDAY #30 tabs 01/18/24 release acetaminophen 300 mg-codeine 30 mg 2 tab PO TID PRN pain #10 tabs 03/28/24 tablet famotidine 40 mg tablet 40 mg PO QDAY #30 tabs 03/28/24 metoclopramide HCl 10 mg tablet 10 mg PO Q6H PRN nausea and 03/28/24 (Reglan) vomiting #20 tabs ondansetron 4 mg disintegrating 4 mg PO Q8H PRN nausea and 04/06/24 tablet vomiting #14 tabs pantoprazole 40 mg tablet,delayed 40 mg PO QDAY #14 tabs 05/22/24 release sucralfate 100 mg/mL oral 5 ml PO BID PRN abdominal 05/22/24 suspension discomfort #473 mL pantoprazole 40 mg tablet,delayed 40 mg PO QDAY #30 tabs 07/23/24 release (Protonix) cyclobenzaprine 10 mg tablet 10 mg PO TID PRN muscle spasm #10 09/01/24 tabs ibuprofen 800 mg tablet 800 mg PO TID PRN fever or pain 09/01/24 #30 tabs Allergies Allergy/AdvReac Type Severity Reaction Status Date / Time No Known Allergies Allergy Unknown Verified 09/10/24 22:34 Review of Systems Review of Systems Systems Reviewed: All systems reviewed, normal except as documented Past Medical History Past Medical History CARDIAC: Positive Hypercholesterolemia and Hypertension GASTROINTESTINAL: Positive Gastrointestinal Disorders (GASTRITIS) and Gastroesophageal Reflux Disease REPRODUCTIVE: Positive Genital Herpes MUSCULOSKELETAL: Positive Musculoskeletal Disorders and Arthritis ENDOCRINE: Positive Endocrine Disorders, Diabetes Mellitus Type 1 and Diabetes Mellitus Type 2 Family History FAMILY HISTORY: Positive Family Cardiac Disorders and Family Surgery Social History SUBSTANCE USE: marijuana ED Exam Narrative Physical exam: See MDM for Dr. Alberts's Physical Exam Documentation. Course Quality Measures none Orders Category Date Time Status 1799 Psychiatric Hold NOW Care 05/18/25 02:30 Ordered EKG (ED ONLY) *Do not use* NOW Care 05/18/25 01:45 Completed Miscellaneous Nursing Order NOW Care 05/18/25 01:45 Active Saline [Insert IV] NOW Care 05/18/25 01:44 Active Straight [In and Out Catheter] X1 Care 05/18/25 01:44 Completed EKG (ED Only) Stat Exams 05/18/25 01:45 Draft ABG [Arterial Blood Gas] Stat Lab 05/18/25 02:00 Completed Acetaminophen Stat Lab 05/18/25 01:45 Completed Acetaminophen Stat Lab 05/18/25 04:45 Ordered Alcohol, Blood Medical Stat Lab 05/18/25 01:45 Completed Ammonia Stat Lab 05/18/25 01:45 Completed Amylase Stat Lab 05/18/25 01:45 Completed BNP [B-Type Natriuretic Peptide] Stat Lab 05/18/25 01:45 Completed Beta Hydroxybutyrate Stat Lab 05/18/25 01:45 Completed CBC Stat Lab 05/18/25 01:45 Completed CK [Creatine Kinase] Stat Lab 05/18/25 01:45 Completed CMP [Comprehensive Metabolic Panel] Stat Lab 05/18/25 01:45 Completed Drug Screen,Urine Stat Lab 05/18/25 04:04 Completed Hemoglobin A1C [Glycohemoglobin w (eAG)] Stat Lab 05/18/25 01:43 Completed Lipase Stat Lab 05/18/25 01:45 Completed Magnesium Stat Lab 05/18/25 01:45 Completed PT [Prothrombin Time with INR] Stat Lab 05/18/25 01:45 Completed PTT [Partial Thromboplastin Time] Stat Lab 05/18/25 01:45 Completed Salicylate Stat Lab 05/18/25 01:45 Completed Troponin I Stat Lab 05/18/25 01:45 Completed UA, C/S IF [Urinalysis, C/S if Indicated] Stat Lab 05/18/25 04:04 Completed Insulin Regular Med 05/18/25 02:25 Discontinued 8 unit SC X1 ONE Ondansetron Inj [Zofran Inj] Med 05/18/25 01:44 Discontinued 4 mg IVP X1 ONE Sodium Chloride 0.9% 1000 ml [Ns] 1,000 ml Med 05/18/25 01:44 Discontinued IV 999 mls/hr Sodium Chloride 0.9% 1000 ml [Ns] 1,000 ml Med 05/18/25 02:26 Discontinued IV 999 mls/hr activated charcoaL [Actidose-Aqua] Med 05/18/25 01:43 Discontinued 50 gm PO X1 ONE Referral Crematory Operator NOW 05/18/25 02:25 Active Vital Signs Vital signs: Vital Signs Temperature 99 F 05/18/25 01:53 Pulse Rate 104 H 05/18/25 01:53 Respiratory Rate 20 05/18/25 01:53 Blood Pressure 163/101 H 05/18/25 01:53 Pulse Oximetry (%) 100 05/18/25 01:53 Oxygen Delivery Method Room Air 05/18/25 01:53 Overdose MDM Narrative MDM Narrative:: This section includes all my notes and documentations, including HPI, PE, and ED course. Aries Alberts MD HPI: 29 y/o male here after overdosing on Tylenol about an hour ago. present who witnessed it. Patient took a handful. Declines to share details. Including why he did it. Doesn't answer any questions. ROS: All negative except as documented in HPI. Physical Exam: General: Alert. Appears intoxicated Eyes: Conjunctivae and lids clear. EOMI. PERRL. ENT: No nasal congestion. Neck: Supple. Heart: RRR. Lungs: No respiratory distress. Good air movement. No rhonchi, wheezing, rales. Chest: No tenderness. Abdomen: Soft and nontender. Normal bowel sounds. No distension. No rebound or guarding. Legs: No clubbing, cyanosis, edema. Skin: Warm and dry. Neuro: Alert and oriented X 3. Cranial Nerves II-XII grossly intact. No peripheral motor deficits. Musculoskeletal: All major joints and bones are not tender with no limited ROM. I reviewed all diagnostic test results: My interpretation of the EKG is sinus rhythm with no acute ST?T changes. Blood tests and urine tests remarkable for Glu 318, Hgb A1C 10.5%, Acetaminophen 9.4, serum alcohol 196.8, and UDS positive for methamphetamine and marijuana. At this point, diagnoses include: Tylenol overdose Suicide risk Alcohol intoxication Hyperglycemia Methamphetamine use Marijuana use Treatment here included: IVF Zofran 4 mg IV Regular insulin 8 units SC Patient is medically cleared for further psychiatric care. Entered order for evaluation by our ED ambulatory care coordinator. At 6 AM on 05/18/25, the care of the patient was transferred to Dr. PARIS. During my watch, the patient remained stable. Aries Alberts MD Patient data External records reviewed:: [facility] previous records (Reviewed prior ED records from 09/12/24. Patient was seen for Gastritis.) Clinical information provided by:: patient Social determinants that could affect healthcare access:: substance use (Marijuana) Patient has the following chronic illnesses:: Gastroesophageal Reflux Disease, Gastritis, Genital Herpes, Arthritis, Diabetes Mellitus Type 2 How is presenting disease/condition affected by chronic disease/condition?: exacerbated by Evaluation data The following diagnostics were reviewed and interpreted by me:: lab results and EKG tracing(s) (My interpretation of the EKG is: Sinus rhythm (103 bpm) with nonspecific ST-T changes. Aries Alberts MD) Lab and/or radiology exams considered but not ordered:: None Interpretation Summary: I reviewed all diagnostic test results: My interpretation of the EKG is sinus rhythm with no acute ST?T changes. Blood tests and urine tests remarkable for Glu 318, Hgb A1C 10.5%, Acetaminophen 9.4, serum alcohol 196.8, and UDS positive for methamphetamine and marijuana. Medications / Prescriptions Medications or Prescriptions considered but not ordered:: None Medication administrations:: Medication Administration History Discontinued Medications Charcoal (Activated Charcoal 25 Gm/120 Ml Tube) 50 gm PO X1 ONE Stop: 05/18/25 01:44 Last Admin: 05/18/25 02:16 Dose: Not Given Documented By: TRISTAN Non-Admin Reason: Cancelled by Provider Sodium Chloride (Ns) 1,000 mls @ 999 mls/hr IV .Q1H1M ONE Stop: 05/18/25 02:44 Last Infusion: 05/18/25 03:54 Dose: Infused Documented By: Admin: 05/18/25 02:15 Dose: 999 mls/hr Documented By: TRISTAN Sodium Chloride (Ns) 1,000 mls @ 999 mls/hr IV .Q1H1M ONE Stop: 05/18/25 03:26 Last Infusion: 05/18/25 03:57 Dose: Infused Documented By: Admin: 05/18/25 03:04 Dose: 999 mls/hr Documented By: REMY Insulin Human Regular (Insulin Hum Regular 1 Unit/0.01 Ml (Per Unit)) 8 unit SC X1 ONE Stop: 05/18/25 02:26 Last Admin: 05/18/25 02:41 Dose: 8 unit Documented By: TRISTAN Co-signed By: REMY Ondansetron HCl (Ondansetron Inj 2 Mg/Ml Inj 2 Ml) 4 mg IVP X1 ONE; Protocol Stop: 05/18/25 01:45 Last Admin: 05/18/25 02:13 Dose: 4 mg Documented By: TRISTAN Treatment here included: IVF Zofran 4 mg IV Regular insulin 8 units SC Consultations Consultation(s) initiated? (list below): No Diagnosis Overdose Differential Diagnosis: suicide attempt by multiple drug overdose, drug overdose, acetaminophen overdose, accidental drug ingestion and other (Psychosis, depression) Most likely diagnosis given after review of the tests above:: At this point, diagnoses include: Tylenol overdose Suicide risk Alcohol intoxication Hyperglycemia Methamphetamine use Marijuana use Admission Indicated Admission indicated?: not indicated Explain why admission is indicated or not indicated:: No psychiatric service at this facility. Admission Request Was there a request for admission?: No Disposition Plan Disposition Plan: other (specify) (At 6 AM on 05/18/25, the care of the patient was transferred to Dr. PARIS.) Discharge Plan Prescriptions/Referrals Prescriptions/Med Rec: No Action famotidine 40 mg tablet 40 mg PO QDAY Qty: 30 0RF acetaminophen-codeine 300-30 mg tablet 2 tab PO TID MDD 6 PRN (Reason: pain) Qty: 10 0RF metoclopramide HCl [Reglan] 10 mg tablet 10 mg PO Q6H PRN (Reason: nausea and vomiting) Qty: 20 0RF ondansetron 4 mg tablet,disintegrating 4 mg PO Q8H PRN (Reason: nausea and vomiting) Qty: 14 0RF cyclobenzaprine 10 mg tablet 10 mg PO TID PRN (Reason: muscle spasm) Qty: 10 0RF ibuprofen 800 mg tablet 800 mg PO TID PRN (Reason: fever or pain) Qty: 30 0RF naproxen 500 mg tablet 500 mg PO BID PRN (Reason: pain) Qty: 30 0RF pantoprazole 40 mg tablet,delayed release (DR/EC) 40 mg PO QDAY Qty: 30 0RF pantoprazole 40 mg tablet,delayed release (DR/EC) 40 mg PO QDAY Qty: 14 0RF sucralfate 100 mg/mL suspension 5 ml PO BID PRN (Reason: abdominal discomfort) Qty: 473 0RF Rx Instructions: swish in mouth and swallow; use after food/drink pantoprazole [Protonix] 40 mg tablet,delayed release (DR/EC) 40 mg PO QDAY Qty: 30 0RF Referrals: Temporary Provider,ED [Physician, Emergency Medicine] - In 1 week Problem List Clinical Impression: Tylenol overdose, Suicide risk, Alcohol intoxication, Hyperglycemia due to diabetes mellitus, Methamphetamine use, Marijuana use Patient/Caregiver Discharge Instructions Print Language: Citizen Of [place]
--- NOTE | 2025-05-18 01:45 | EKG_ITS ---
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
--- NOTE | 2025-05-18 01:46 | PC.NURSE ---
COMMUNITY ACTION WORKER MADE AWARE SITTER NEEDS DUE TO TO SI. NO SITTER AVAILABLE AT THIS MOMENT
[2025-05-18 01:59] LABS: Basophils # (Auto) 0.1 Thou/mm3 (0.0-0.2); Basophils % (Auto) 1 % (0-2.5); Beta Hydroxybutyrate 0.1 mmol/L (<0.6); Eosinophils # (Auto) 0.1 Thou/mm3 (0.0-0.5); Eosinophils % (Auto) 1 % (0-10); Hematocrit 48.7 % (41.0-53.0); Hemoglobin 17.5 g/dL (13.5-16.0); Immature Granulocytes Auto 0.02 Thou/mm3 (0.00-0.00); Lymphocytes # (Auto) 2.5 Thou/mm3 (1.0-4.8); Lymphocytes % (Auto) 36 % (10-50); Mean Corpuscular HGB Conc 35.9 g/dl (31.0-37.0); Mean Corpuscular Hemoglobin 31.9 pg (25.0-35.0); Mean Corpuscular Volume 89 fL (80-100); Monocytes # (Auto) 0.6 Thou/mm3 (0.0-0.8); Monocytes % (Auto) 9 % (0-12); Neutrophils # (Auto) 3.7 Thou/mm3 (1.8-7.7); Neutrophils % (Auto) 52 % (37-80); Nucleated Red Blood Cell # 0.00 Thou/mm3 (0.00-0.00); Nucleated Red Blood Cell % 0 /100 WBC (0); Platelet Count 300 Thou/mm3 (140-440); RDW Standard Deviation 38.1 fL (35.1-43.9); Red Blood Count 5.49 Miln/mm3 (4.50-5.90); White Blood Count 7.0 Thou/mm3 (3.8-10.6)
[2025-05-18 02:08] LABS: Base Excess -4 (-3-3); HCO3 21 mEq/L (20-26); Inspired Oxygen, FIO2 21 %; O2 Saturation 98 % (91-98); PCO2 39 mmHg (32.0-48.0); PO2 100 mmHg (83-108); pH, Arterial 7.34 (7.35-7.45)
[2025-05-18 02:13] LABS: Allen Test Performed/OK; Puncture Site Left Radial
[2025-05-18] MEDS: ONDANSETRON INJ 2 MG/ML INJ 2 ML 4 MG IVP (02:13)
[2025-05-18 02:14] LABS: INR 0.9 (0.9-1.3); Partial Thromboplastin Time 26.5 Seconds (22.0-36.0); Prothrombin Time 10.0 Seconds (9.0-12.2)
[2025-05-18] MEDS: SODIUM CHLORIDE 0.9% 1000 ML 1,000 ML 999 ML IV ×2 (02:15→03:04)
[2025-05-18 02:17] LABS: Ammonia < 10 uMol/L (11-32); B-Type Natriuretic Peptide < 20 pg/mL (0-100)
[2025-05-18 02:18] LABS: Acetaminophen 9.4 mcg/mL (10.0-20.0); Alanine Aminotransferase 22 U/L (10-49); Albumin, Serum 5.1 gm/dL (3.5-5.0); Albumin/Globulin Ratio 2.1 (1.2-2.2); Alcohol, Blood Medical 196.8 mg/dL (0-10.0); Alkaline Phosphatase 91 U/L (46-116); Amylase 108 U/L (30-118); Anion Gap 8 (7-16); Aspartate Amino Transferase 24 U/L (0-34); BUN/Creatinine Ratio 6 Ratio (12-20); Bilirubin,Total 0.5 mg/dL (0.3-1.2); Blood Urea Nitrogen < 5 mg/dL (9-23); Calcium 9.7 mg/dL (8.3-10.6); Calcium (Corrected) 9.7 mg/dL (8.5-10.1); Carbon Dioxide 28.0 mMol/L (20.0-31.0); Chloride 102 mMol/L (98-107); Creatine Kinase 129 U/L (34-171); Creatinine (Component) 0.9 mg/dL (0.6-1.3); Estimated Creatinine Clearance 122.6 mL/min (>60); Globulin 2.4 gm/dL (2.3-3.5); Glucose 318 mg/dL (74-106); Lipase 57 U/L (12-53); Magnesium 2.0 mg/dL (1.6-2.6); Osmolality,Calculated 284 (275-295); Potassium 4.2 mMol/L (3.4-5.1); Sodium 138 mMol/L (136-145); Total Protein 7.5 gm/dL (5.7-8.2); Troponin I < 0.020 ng/mL (0.0-0.045); eGFR > 60 See Note
--- NOTE | 2025-05-18 02:21 | PC.NURSE ---
PT'S GIRLFRIEND STATES THAT PT INGESTED HALF A BOTTLE OF TYLENOL EXTRA STRENGTH, AND FULL BOTTLES OF CETIRIZINE AND BENZONATATE AT APPROXIMATELY 0100. PT ALSO REPORTEDLY INGESTED ALCOHOL WELL. PT STATED HE DOESN'T KNOW WHY HE TOOK THE PILLS.
--- NOTE | 2025-05-18 02:26 | PC.NURSE ---
POISON CONTROL CALLED AT 0155. SPOKE WITH RICCO FROM [facility] OFFICE. AFTER TALKING TO RICCO FROM POISON CONTROL AND RECEIVING RECOMMENDATIONS, RELAYED POISON CONTROLS RECOMMENDATIONS TO DR WONG. NO NEW ORDERS GIVEN.
[2025-05-18] MEDS: INSULIN HUM REGULAR 1 UNIT/0.01 ML (PER UNIT) 8 UNIT SC (02:41)
[2025-05-18 02:47] LABS: Glucose Estimated Average 255 mg/dL (80-131); Hemoglobin A1C 10.5 % Hgb (4.8-6.0)
--- NOTE | 2025-05-18 02:58 | PC.NURSE ---
CALL MADE TO POISON CONTROL SPOKE TO SHALONDA. RECOMMENDED TO MONITOR PT FOR 6-8 HOURS, REPEAT ACETAMINOPHEN AT 5AM, GET A ASPIRIN LEVEL. RECOMMENDATIONS MADE KNOWN TO DR WONG. NO NEW ORDERS AT THIS TIME
[2025-05-18 03:13] LABS: Salicylate < 3.0 mg/dL
[2025-05-18 04:12] LABS: Collection Type, Urine Clean Catch
[2025-05-18 04:20] LABS: Bilirubin,Urine Negative (Negative); Blood,Urine Negative (Negative); Clarity,Urine Clear (Clear/Hazy); Color,Urine Colorless (Lt Yel-Yel); Culture Indicated,Urine Not Indicated; Glucose, Urine 4+ (Negative); Ketones,Urine Negative (Negative); Leukocyte Esterase,Urine Negative (Negative); Nitrite,Urine Negative (Negative); PH,Urine 6.0 (5.0-7.0); Protein,Urine 1+ (Neg - Trace); RBC,Urine 6 /hpf (0-3); Specific Gravity,Urine 1.009 (1.001-1.035); Squamous Epithelial Cell,Urine < 1 /hpf (0-5); Urobilinogen,Urine Negative mg/dL (0.0-1.0); WBC,Urine 1 /hpf (0-5)
[2025-05-18 04:42] LABS: Amphetamine/Methamp Scrn,U Positive (Negative); Barbiturate Screen,Urine Negative (Negative); Benzodiazepines Screen,Urine Negative (Negative); Benzoylecgonine Screen, Ur Negative (Negative); Fentanyl Screen,Urine Negative (Negative); Opiate Screen,Urine Negative (Negative); THC Screen,Urine Positive (Negative)
[2025-05-18 05:38] LABS: Acetaminophen 31.3 mcg/mL (10.0-20.0)
--- NOTE | 2025-05-18 06:02 | PC.NURSE ---
SPOKE TO PT'S TOREY ROSALES WHO WANTED AN UPDATE ON THE STATUS OF THE PT
--- NOTE | 2025-05-18 06:29 | PC.NURSE ---
SPOKE TO RICCO FROM POISON CONTROL STATING THAT SHE RECOMENDS ONE MORE ACETAMINPHEN LEVEL BLOOD DRAW AT 7 AM, DR PARIS MADE AWARE, NEW ORDERS GIVEN
--- NOTE | 2025-05-18 07:00 | PC.CC ---
Addendum entered by Nadia Hussein 05/18/25 10:53: 1045-Pts is present to p/u the pt. Addendum entered by Nadia Hussein 05/18/25 10:52: 1000- ASW-Nadia Keenan met with patient [id number] to complete assessment. ASW introduced self, role, and reason for assessment. ASW disclosed limits of confidentiality as well. Patient appeared alert and oriented to self, place, and situation. Patient was pleasant; his mood appeared calm; his behavior appeared disinhibited with flat affect. Patient?s thought process was linear and organized. No signs of delusions, paranoid or AVH. Pt stated he was brought to the hospital by his , as the pts was worried because he ingested about 1/4 of a bottle of Tylenol. Pt reported that he has been drinking all day long, using Meth and smoking marijuana. Per pt, he stated he and his had been arguing because she was upset about his substance use and the consumption. Pt reported that he ingested the Tylenol to get as high as possible, and was drunk when he ingested the Tylenol. Pt reported that his became worried and so she brought him to the hospital. ASW contacted pts as collateral, named Cheryljewels Fuentes [phone] to gather information of what occured. Per Cheryl, she reported that she and her spouse have been arguing because of him constantly being drunk and using Meth. Cheryl reported she is leaving the pt after 10 years of being togther because of his substance use/abuse. Cheryl reported that yesterday, the pt was drunk and under the influence of other drugs and she was upset because of that. Cheryl reported that the pt grabbed a bottle of Tylenol that was have empty and assumes he ingested about 1/4 of the remainder of the bottle but does state that there were a few pills left in the bottle (about 8). Per Cheryl, she stated that he does not believe pt ingested the pills as an attempt to end his life. Per Cheryl, she reported that she believes the pt was trying to feel high as much as he could and was drunk when he did ingest the pills. Per Cheryl, she denies h/o psychiatric hospitalization and denies a MH diagnosis for the pt. Pt also confirmed the same thing. ASW engaged with pt again and pt was communicating and appropriate. Per pt, he strongly denies ingesting the pills for SI. Pt denies h/o MH concerns and h/o MH hospitalizations. Pt stated this is the first time he has overtaken meds and states he realizes it was dumb to do. ASW asked pt about safety planning and pt reports he is open to safety planning. ASW explained what safety plan looks like, such as having his watch over him for the next 72 hours, Cheryl will confinscate all meds and sharps from the home and keep them under locked taylor, and pt will attend a MH appointment and AOD. Pt agreed and stated he will comply with the plan. ASW staffed this case with KAMAR NICOLAS and it was determined that the pt be d/c on a safety plan and the will assume responsibility of the pt. ASW presented this case to Dr. Cole and she all agreed to the plan. facility planner and assigned RN are aware. Pt has a MH appointment on 05/19/25 at 12pm and an AOD appointment on 05/19/25 at 1pm. Pt and are aware of the appointments. Original Note: 0700-Pt is a 29 yo male who entered the ED by his spouse. Per the notes, and 's disclosure, she witnessed the pt ingesting a handful of Tylenol. Per the notes, PT TOOK UNKNOWN AMOUNT OF TYLENOL 500MG PILLS, BENZONATATE 200MG PILLS, CETIRIZINE HCL 10MG ABOUT ONE HOUR AGO (before entering the ED). Per notes, pt is denying SI. ASW will assess once pt is medically cleared. Pt is on a 1799.
[2025-05-18 07:47] LABS: Acetaminophen 22.4 mcg/mL (10.0-20.0)
--- NOTE | 2025-05-18 07:50 | EDNOTE_ITS ---
Emergency Room Addendum <Mona Cole MD - Last Filed: 05/18/25 08:44> Addendum Narrative: Medically cleared <Marybel Soria - Last Filed: 05/18/25 10:54> Addendum Narrative: 0600: Care assumed from Dr. Alberts, the previous shift emergency physician. Past medical, surgical, social and family history reviewed. Vitals and home medications reviewed. I will assume the care of the patient at this time, pending medical clearance for mental health evaluation. 0840: Patient is medically cleared for mental health evaluation. Patient has been evaluated by our social sciences professor and has created a safety plan with patient. State the patient has an appointment tomorrow at noon at the [facility]. Patient has remained stable during my watch, will DC home.
--- NOTE | 2025-05-18 08:56 | PC.NURSE ---
social service at bedside for evaluation
== END 2025-05-18 11:00 | disposition home or self-care (01) ==
PROVIDERS: Emergency Medicine; Emergency Provider Emergency Medicine; PCP Specialist
DX: T39.1X2A Poisoning by 4-Aminophenol derivatives, intentional self-harm, initial encounter (principal); E11.65 Type 2 diabetes mellitus with hyperglycemia; F10.129 Alcohol abuse with intoxication, unspecified; F12.90 Cannabis use, unspecified, uncomplicated; F15.90 Other stimulant use, unspecified, uncomplicated; Y90.8 Blood alcohol level of 240 mg/100 ml or more
CPT/HCPCS: 36415; 36600; 80053; 80307; 80320; 80329; 81001; 82010; 82140; 82150; 82550; 82803; 83036; 83690; 83735; 83880; 84484; 85025; 85610; 85730; 93005; 96127; 96361; 96374; 99284; J1815; J2405; J7030; G0480

== ENCOUNTER 2025-06-17 08:07 | Emergency (ER) | payer MEDICAID, SELFPAY ==
[2025-06-17 08:08] VITALS: BMI 29.2
[2025-06-17 08:16] VITALS: BP 144/93; PULSE 110; RESP 18; TEMP 36.6; O2SAT 98
--- NOTE | 2025-06-17 08:21 | XR_ITS ---
Examination: CT abdomen and pelvis without contrast. Coronal 3-D reconstructions. Sagittal 2-D reconstructions. Date and time of exam: June 17, 2025, 0904 hours INDICATIONS: Left-sided flank pain onset today CTDI: vol (mGy): June 17, 2025, 0904 hours, comparison July 23, 2024 INDICATIONS: 6.35 DLP: (mGycm): 375 Technique: Axial images of the abdomen have been obtained, 3 mm slice thickness Intravenous contrast material has not been administered. Low dose protocols were performed. One or more of the following dose reduction techniques were used; automated exposure control, adjustment of the mA and/or KV according to patient size, use of iterative reconstruction technique. Findings: No focal liver or splenic lesions No gallstones No pancreatic or adrenal mass No renal or ureteral calculi, no hydronephrosis Aorta normal size. Normal appendix No bowel obstruction Scattered colonic diverticulosis. Normal seminal vesicles normal prostate Mild thickening urinary bladder wall Intact osseous structures IMPRESSION: No renal or ureteral calculi, no hydronephrosis Normal appendix Cystitis pattern
[2025-06-17 08:52] LABS: Base Excess, Venous 10 (-3-3); O2 Saturation, Venous 78 % (96-97); PCO2, Venous 45 mmHg (36-56); PO2, Venous 38 mmHg (15-58); pH, Venous 7.50 (7.33-7.66)
[2025-06-17 08:54] LABS: Basophils # (Auto) 0.0 Thou/mm3 (0.0-0.2); Basophils % (Auto) 1 % (0-2.5); Eosinophils # (Auto) 0.0 Thou/mm3 (0.0-0.5); Eosinophils % (Auto) 0 % (0-10); Hematocrit 46.8 % (41.0-53.0); Hemoglobin 17.0 g/dL (13.5-16.0); Immature Granulocytes Auto 0.01 Thou/mm3 (0.00-0.00); Lymphocytes # (Auto) 1.3 Thou/mm3 (1.0-4.8); Lymphocytes % (Auto) 16 % (10-50); Mean Corpuscular HGB Conc 36.3 g/dl (31.0-37.0); Mean Corpuscular Hemoglobin 31.9 pg (25.0-35.0); Mean Corpuscular Volume 88 fL (80-100); Monocytes # (Auto) 0.6 Thou/mm3 (0.0-0.8); Monocytes % (Auto) 8 % (0-12); Neutrophils # (Auto) 6.0 Thou/mm3 (1.8-7.7); Neutrophils % (Auto) 75 % (37-80); Nucleated Red Blood Cell # 0.00 Thou/mm3 (0.00-0.00); Nucleated Red Blood Cell % 0 /100 WBC (0); Platelet Count 286 Thou/mm3 (140-440); RDW Standard Deviation 37.1 fL (35.1-43.9); Red Blood Count 5.33 Miln/mm3 (4.50-5.90); White Blood Count 8.1 Thou/mm3 (3.8-10.6)
[2025-06-17 08:57] LABS: Beta Hydroxybutyrate 0.7 mmol/L (<0.6)
[2025-06-17] MEDS: HYDROcodone/APAP 5/325 TABLET 1 TAB PO (09:08)
[2025-06-17] MEDS: METOCLOPRAMIDE INJ 5 MG/ML VIAL 2 ML 10 MG IVP (09:12)
[2025-06-17 09:13] LABS: Alanine Aminotransferase 16 U/L (10-49); Albumin, Serum 5.0 gm/dL (3.5-5.0); Albumin/Globulin Ratio 1.9 (1.2-2.2); Alkaline Phosphatase 113 U/L (46-116); Anion Gap 11 (7-16); Aspartate Amino Transferase 15 U/L (0-34); BUN/Creatinine Ratio 15 Ratio (12-20); Bilirubin,Total 1.0 mg/dL (0.3-1.2); Blood Urea Nitrogen 18 mg/dL (9-23); Calcium 9.6 mg/dL (8.3-10.6); Calcium (Corrected) 9.6 mg/dL (8.5-10.1); Carbon Dioxide 32.4 mMol/L (20.0-31.0); Chloride 92 mMol/L (98-107); Creatinine (Component) 1.2 mg/dL (0.6-1.3); Estimated Creatinine Clearance 86.0 mL/min (>60); Globulin 2.7 gm/dL (2.3-3.5); Glucose 372 mg/dL (74-106); Lipase 45 U/L (12-53); Magnesium 2.0 mg/dL (1.6-2.6); Osmolality,Calculated 287 (275-295); Potassium 4.4 mMol/L (3.4-5.1); Sodium 135 mMol/L (136-145); Total Protein 7.7 gm/dL (5.7-8.2); eGFR > 60 See Note
[2025-06-17] MEDS: SODIUM CHLORIDE 0.9% 1000 ML 1,000 ML 999 ML IV ×2 (09:13→09:25)
[2025-06-17 09:17] VITALS: BP 178/107; PULSE 102; RESP 13; TEMP 36.6; O2SAT 99
[2025-06-17] MEDS: PIPER/TAZO INJ 4.5 GM in SODIUM CHLORIDE 0.9% (POP) 100 ML IV (09:45)
[2025-06-17] MEDS: INSULIN HUM REGULAR 1 UNIT/0.01 ML (PER UNIT) 10 UNIT IV (09:45)
--- NOTE | 2025-06-17 11:03 | PD.EDNV ---
Nausea/Vomit./Diarrhea-RME/HPI General Chief complaint: Nausea/Vomiting/Diarrhea Stated complaint: vomiting Time Seen by Provider: 06/17/25 08:12 Arrival date/time: 06/17/25 08:07 Limitations: no limitations RME / HPI RME / HPI Narrative: 29 year old male with history of GERD presents to the ED for evaluation of abdominal pain accompanied by nausea and vomiting beginning yesterday. States the pain is located most to the epigastric region that moves up to his throat, described as burning in sensation, rating 9/10 in severity. No medications taken at home., No other associated symptoms reported. Denies fevers, chills, sweats, chest pain, cough, shortness of breath, diarrhea, constipation, or urinary symptoms. Related Data Previous Rx's ?Medication ?Instructions ?Recorded naproxen 500 mg tablet 500 mg PO BID PRN pain #30 tabs 04/07/23 pantoprazole 40 mg tablet,delayed 40 mg PO QDAY #30 tabs 01/18/24 release acetaminophen 300 mg-codeine 30 mg 2 tab PO TID PRN pain #10 tabs 03/28/24 tablet famotidine 40 mg tablet 40 mg PO QDAY #30 tabs 03/28/24 metoclopramide HCl 10 mg tablet 10 mg PO Q6H PRN nausea and 03/28/24 (Reglan) vomiting #20 tabs ondansetron 4 mg disintegrating 4 mg PO Q8H PRN nausea and 04/06/24 tablet vomiting #14 tabs pantoprazole 40 mg tablet,delayed 40 mg PO QDAY #14 tabs 05/22/24 release sucralfate 100 mg/mL oral 5 ml PO BID PRN abdominal 05/22/24 suspension discomfort #473 mL pantoprazole 40 mg tablet,delayed 40 mg PO QDAY #30 tabs 07/23/24 release (Protonix) cyclobenzaprine 10 mg tablet 10 mg PO TID PRN muscle spasm #10 09/01/24 tabs ibuprofen 800 mg tablet 800 mg PO TID PRN fever or pain 09/01/24 #30 tabs Allergies Allergy/AdvReac Type Severity Reaction Status Date / Time No Known Allergies Allergy Unknown Verified 06/17/25 08:09 Review of Systems Review of Systems Systems Reviewed: All systems reviewed, normal except as documented Past Medical History Past Medical History CARDIAC: Positive Hypercholesterolemia and Hypertension GASTROINTESTINAL: Positive Gastrointestinal Disorders and Gastroesophageal Reflux Disease REPRODUCTIVE: Positive Genital Herpes MUSCULOSKELETAL: Positive Musculoskeletal Disorders and Arthritis ENDOCRINE: Positive Endocrine Disorders, Diabetes Mellitus Type 1 and Diabetes Mellitus Type 2 Family History FAMILY HISTORY: Positive Family Cardiac Disorders and Family Surgery Social History SMOKING STATUS: Never smoker SUBSTANCE USE: marijuana ED Exam General Limitations: Present no limitations General appearance: Present alert and in no apparent distress Head Head exam: Present atraumatic and normocephalic Eye Eye exam: Present normal appearance, PERRL and EOMI ENT ENT exam: Present normal exam, normal oropharynx and mucous membranes dry Neck Neck exam: Present normal inspection, full ROM and trachea midline Chest Chest inspection: Present normal inspection and symmetric chest wall rise Respiratory Respiratory exam: Present normal lung sounds bilaterally Cardiovascular Cardiovascular exam: Present normal rhythm, tachycardia and normal heart sounds Abdominal Exam Abdominal exam: Present soft and normal bowel sounds Extremities Exam Extremities exam: Present normal inspection and full ROM Back Exam Back exam: Present normal inspection and full ROM Neurological Exam Neurological exam: Present alert, oriented X3 and CN II-XII intact Psychiatric Psychiatric exam: Present normal affect and normal mood Skin Skin exam: Present warm, dry, intact and normal color Course Quality Measures none Orders Category Date Time Status Insert IV NOW Care 06/17/25 08:[address] abdomen pelvis wo con Stat Exams 06/17/25 08:21 Completed Beta Hydroxybutyrate Stat Lab 06/17/25 08:45 Completed CBC Stat Lab 06/17/25 08:45 Completed Comprehensive Metabolic Panel Stat Lab 06/17/25 08:45 Completed Drug Screen,Urine Stat Lab 06/17/25 12:49 Completed Lipase Stat Lab 06/17/25 08:45 Completed Mag [Magnesium] Stat Lab 06/17/25 08:45 Completed UA, C/S IF [Urinalysis, C/S if Indicated] Stat Lab 06/17/25 12:49 Completed VBG [Venous Blood Gas] Stat Lab 06/17/25 08:45 Completed HYDROcodone*/APAP 5/325 [Marion 5/325] Med 06/17/25 08:20 Discontinued 1 tab PO X1 ONE Insulin Regular Med 06/17/25 09:30 Discontinued 10 unit IV X1 ONE Metoclopramide Inj [Reglan Inj] Med 06/17/25 08:20 Discontinued 10 mg IVP X1 ONE Piper/Tazo Inj [Zosyn Inj] 4.5 gm Med 06/17/25 09:28 Discontinued Sodium Chloride 0.9% (Pop) [NS 0.9% mini bag] 100 ml IV X1 Sodium Chloride 0.9% 1000 ml [Ns] 1,000 ml Med 06/17/25 08:20 Discontinued IV 999 mls/hr Sodium Chloride 0.9% 1000 ml [Ns] 1,000 ml Med 06/17/25 09:14 Discontinued IV 999 mls/hr Vital Signs Vital signs: Vital Signs Temperature 98 F 06/17/25 08:16 Pulse Rate 110 H 06/17/25 08:16 Respiratory Rate 18 06/17/25 08:16 Blood Pressure 144/93 H 06/17/25 08:16 Pulse Oximetry (%) 98 06/17/25 08:16 Oxygen Delivery Method Room Air 06/17/25 08:16 Pulse ox is 98% on room air which is adequate. Nausea/Vomiting/Diarrhea MDM Narrative MDM Narrative:: Marybel Root am scribing for and in the presence of Dr. Melton. BS improved now 207. Patient has remained vitally stable. We reviewed all the results, analysis, and treatment plans. Patient is amenable to discharge. Strict return precautions were outlined. Patient data External records reviewed:: [facility] previous records Clinical information provided by:: patient Social determinants that could affect healthcare access:: none Patient has the following chronic illnesses:: GERD How is presenting disease/condition affected by chronic disease/condition?: exacerbated by Evaluation data The following diagnostics were reviewed and interpreted by me:: lab results and radiology exam(s) Lab and/or radiology exams considered but not ordered:: None Interpretation Summary: Ordering Physician: Hardik (ARIEL)Albin NP Date of Service: 06/17/25 Procedure(s): CT abdomen pelvis wo con Accession Number(s): [id number] cc: Neda Perez; Hardik PARADA)Albin NP; Mike Adamson MD~ Examination: CT abdomen and pelvis without contrast. Coronal 3-D reconstructions. Sagittal 2-D reconstructions. Date and time of exam: June 17, 2025, 0904 hours INDICATIONS: Left-sided flank pain onset today CTDI: vol (mGy): June 17, 2025, 0904 hours, comparison July 23, 2024 INDICATIONS: 6.35 DLP: (mGycm): 375 Technique: Axial images of the abdomen have been obtained, 3 mm slice thickness Intravenous contrast material has not been administered. Low dose protocols were performed. One or more of the following dose reduction techniques were used; automated exposure control, adjustment of the mA and/or KV according to patient size, use of iterative reconstruction technique. Findings: No focal liver or splenic lesions No gallstones No pancreatic or adrenal mass No renal or ureteral calculi, no hydronephrosis Aorta normal size. Normal appendix No bowel obstruction Scattered colonic diverticulosis. Normal seminal vesicles normal prostate Mild thickening urinary bladder wall Intact osseous structures IMPRESSION: No renal or ureteral calculi, no hydronephrosis Normal appendix Cystitis pattern Dictated By: Mike Adamson MD Signed By: <Electronically signed by Mike Adamson MD in OV> 06/17/25 1004 Medications / Prescriptions Medications / Prescriptions considered but not ordered:: None Medication administrations:: Medication Administration History Discontinued Medications Hydrocodone Bitart/Acetaminophen (Hydrocodone/Apap 5/325 Tablet) 1 tab PO X1 ONE Stop: 06/17/25 08:21 Last Admin: 06/17/25 09:08 Dose: 1 tab Documented By: Sodium Chloride (Ns) 1,000 mls @ 999 mls/hr IV .Q1H1M ONE Stop: 06/17/25 09:20 Last Infusion: 06/17/25 10:25 Dose: Infused Documented By: Admin: 06/17/25 09:13 Dose: 999 mls/hr Documented By: Sodium Chloride (Ns) 1,000 mls @ 999 mls/hr IV .Q1H1M ONE Stop: 06/17/25 10:14 Last Infusion: 06/17/25 10:30 Dose: Infused Documented By: Admin: 06/17/25 09:25 Dose: 999 mls/hr Documented By: Piperacillin Sod/Tazobactam (Sod 4.5 gm/ Sodium Chloride) 100 mls @ 200 mls/hr IV X1 ONE; Protocol Stop: 06/17/25 09:57 Last Infusion: 06/17/25 10:20 Dose: Infused Documented By: Admin: 06/17/25 09:45 Dose: 200 mls/hr Documented By: Insulin Human Regular (Insulin Hum Regular 1 Unit/0.01 Ml (Per Unit)) 10 unit IV X1 ONE Stop: 06/17/25 09:31 Last Admin: 06/17/25 09:45 Dose: 10 unit Documented By: EF Co-signed By: SONG Metoclopramide HCl (Metoclopramide Inj 5 Mg/Ml Vial 2 Ml) 10 mg IVP X1 ONE; Protocol Stop: 06/17/25 08:21 Last Admin: 06/17/25 09:12 Dose: 10 mg Documented By: XOCHITL See above Consultations Consultation(s) initiated? (list below): No Diagnosis Nausea Differential Diagnosis: food poisoning, gastroenteritis, drug-induced nausea and vomiting and dehydration Most likely diagnosis given after review of the tests above:: Acute hyperglycemia Diabetes Diabetic ketosis Admission Indicated Admission indicated?: not indicated Admission Request Was there a request for admission?: No Disposition Plan Disposition Plan: Discharge Discharge Attestation Discharge Attestation: The patient and all family members were given an opportunity to ask questions and understood the discharge instructions. Discharge instructions specifically effects, indications for sooner follow up or return to the emergency department, and the expected course of current diagnosis. Patient condition: Stable Discharge Plan Plan Patient Disposition: HOME (Self Care) Patient condition on transfer: Stable Prescriptions/Referrals Prescriptions/Med Rec: No Action famotidine 40 mg tablet 40 mg PO QDAY Qty: 30 0RF acetaminophen-codeine 300-30 mg tablet 2 tab PO TID MDD 6 PRN (Reason: pain) Qty: 10 0RF metoclopramide HCl [Reglan] 10 mg tablet 10 mg PO Q6H PRN (Reason: nausea and vomiting) Qty: 20 0RF ondansetron 4 mg tablet,disintegrating 4 mg PO Q8H PRN (Reason: nausea and vomiting) Qty: 14 0RF cyclobenzaprine 10 mg tablet 10 mg PO TID PRN (Reason: muscle spasm) Qty: 10 0RF ibuprofen 800 mg tablet 800 mg PO TID PRN (Reason: fever or pain) Qty: 30 0RF naproxen 500 mg tablet 500 mg PO BID PRN (Reason: pain) Qty: 30 0RF pantoprazole 40 mg tablet,delayed release (DR/EC) 40 mg PO QDAY Qty: 30 0RF pantoprazole 40 mg tablet,delayed release (DR/EC) 40 mg PO QDAY Qty: 14 0RF sucralfate 100 mg/mL suspension 5 ml PO BID PRN (Reason: abdominal discomfort) Qty: 473 0RF Rx Instructions: swish in mouth and swallow; use after food/drink pantoprazole [Protonix] 40 mg tablet,delayed release (DR/EC) 40 mg PO QDAY Qty: 30 0RF Referrals: Neda Perez PA-C [Primary Care Provider] - In 1 week Problem List Clinical Impression: Acute hyperglycemia, Diabetes mellitus, Diabetic ketosis Patient/Caregiver Discharge Instructions Discharge Activity: activity as tolerated Education Materials: Diabetes Shopping Preparing Meals, ED Diet: Diabetes Additional Instructions: Please eat regular meals frequently throughout the day. Try to eat healthy foods including vegetables, fiber, protein. Follow-up with your doctor in 1 days. Print Language: Albanian Stand Alone Forms: Amy Award Info., Work/School Release, Patient Portal Info Letter
[2025-06-17 11:13] VITALS: BP 143/96; PULSE 103; RESP 15; TEMP 36.9; O2SAT 99
[2025-06-17 12:58] LABS: Collection Type, Urine Clean Catch
[2025-06-17 13:11] LABS: Amphetamine/Methamp Scrn,U Negative (Negative); Barbiturate Screen,Urine Negative (Negative); Benzodiazepines Screen,Urine Negative (Negative); Benzoylecgonine Screen, Ur Negative (Negative); Fentanyl Screen,Urine Negative (Negative); Opiate Screen,Urine Negative (Negative); THC Screen,Urine Positive (Negative)
[2025-06-17 13:13] VITALS: BP 150/98; PULSE 95; RESP 15; TEMP 36.8; O2SAT 98
[2025-06-17 13:15] LABS: Bilirubin,Urine Negative (Negative); Blood,Urine Negative (Negative); Clarity,Urine Clear (Clear/Hazy); Color,Urine Lt-Yellow (Lt Yel-Yel); Culture Indicated,Urine Not Indicated; Glucose, Urine 4+ (Negative); Ketones,Urine Trace (Negative); Leukocyte Esterase,Urine Negative (Negative); Nitrite,Urine Negative (Negative); PH,Urine 7.0 (5.0-7.0); Protein,Urine 2+ (Neg - Trace); RBC,Urine 9 /hpf (0-3); Specific Gravity,Urine 1.039 (1.001-1.035); Squamous Epithelial Cell,Urine 1 /hpf (0-5); Urobilinogen,Urine Negative mg/dL (0.0-1.0); WBC,Urine 2 /hpf (0-5)
[2025-06-17 14:17] VITALS: BP 147/96; PULSE 96; RESP 14; TEMP 36.8; O2SAT 98
--- NOTE | 2025-06-17 14:20 | PC.NURSE ---
@141- PT GIVEN JELL-O FOR PO TRIAL, PERDR. HADDAD'S ORDERS. PT ATE 100% OF JELL-O CUP. PT DENIED N/V. PT PASSED PO CHALLENGE. DR. HADDAD MADE AWARE.
== END 2025-06-17 14:21 | disposition home or self-care (01) ==
PROVIDERS: Nurse Practitioner Primary Care; Emergency Provider Family Medicine; PCP Specialist
DX: E11.10 Type 2 diabetes mellitus with ketoacidosis without coma (principal); E11.65 Type 2 diabetes mellitus with hyperglycemia
CPT/HCPCS: 36415; 74176; 80053; 80307; 81001; 82010; 82803; 83690; 83735; 85025; 96361; 96365; 96375; 99284; J1815; J2543; J2765; J7030; A9270